=== PATIENT | female | born 1945 | race Caucasian/White ===

== ENCOUNTER 2018-04-21 20:08 | Emergency (ER) | payer MEDICARE, BC ==
[~2018-04-21] VITALS: Ht 162.6 cm; Wt 66.4 kg
[2018-04-21 20:13] VITALS: TEMP 98
[2018-04-21] MEDS ORDERED: LOTENSIN20 MG PO (20:54)
[2018-04-21 21:08] LABS: BASO % 0.3 % (0.0-2.0); EOS # 0.2 (0.0-0.7); EOS % 2.6 % (0-4.0); GRAN % 45.1 % (42.2-75.2); HEMOGLOBIN 14.5 g/dl (12.5-16.0); LYMPH # 2.7 (1.2-3.4); LYMPH % 41.3 % (20.0-51.0); MEAN CELL VOLUME 89 fl (80.0-100.0); MEAN CORPUSCULAR HEMOGLOBIN 30 pg (27.0-31.0); MEAN CORPUSCULAR HGB CONC 34 g/dl (33.0-37.0); MEAN PLATELET VOLUME 9.1 fl (7.4-10.4); MONO # 0.7 (0.1-0.6); MONO % 10.5 % (1.7-9.3); PLATELET COUNT 273 K/mm3 (130-400); RED BLOOD COUNT 4.83 M/mm3 (4.10-5.30); REDCELL DISTRIBUTION WIDTH-CV 12.2 % (11.5-14.5)
[2018-04-21 21:23] LABS: CALCIUM 9.1 mg/dL (8.4-10.2); CREATININE, serum 0.83 mg/dL (0.52-1.25); POTASSIUM 3.5 mmol/L (3.4-5.0)
[2018-04-21 21:53] VITALS: BP 141/72; PULSE 75
== END 2018-04-21 21:53 | disposition home or self-care (01) ==
LOC: COL.ER 20:08
PROVIDERS: Emergency Medicine
DX: R55 Syncope and collapse (principal); R42 Dizziness and giddiness; I10 Essential (primary) hypertension

== ENCOUNTER → 2018-04-29 | Outpatient (CLI) | payer MEDICARE, BC ==
[~2018-04-29] MED LIST: LOTENSIN20 MG PO
== END ==
LOC: COL.RAD 10:30 → COL.VAS 10:30
DX: I65.23 Occlusion and stenosis of bilateral carotid arteries (principal); G45.3 Amaurosis fugax

== ENCOUNTER 2019-04-04 13:47 | Inpatient (IN) | payer MEDICARE, BC ==
[~2019-04-04] VITALS: Ht 162.6 cm; Wt 66.7 kg
[2019-04-04 14:33] LABS: HEMATOCRIT 42.9 % (37.0-47.0); HEMOGLOBIN 14.5 g/dl (12.5-16.0); MEAN CELL VOLUME 89 fl (80.0-100.0); MEAN CORPUSCULAR HEMOGLOBIN 30 pg (27.0-31.0); MEAN CORPUSCULAR HGB CONC 34 g/dl (33.0-37.0); MEAN PLATELET VOLUME 9.2 fl (7.4-10.4); PLATELET COUNT 233 K/mm3 (130-400); RED BLOOD COUNT 4.82 M/mm3 (4.10-5.30); REDCELL DISTRIBUTION WIDTH-CV 12.5 % (11.5-14.5)
[2019-04-04 14:38] LABS: ALBUMIN 4.4 gm/dL (3.5-5.0); BILIRUBIN,TOTAL 0.5 mg/dL (0.0-1.0); CALCIUM 9.7 mg/dL (8.4-10.2); CREATININE, serum 0.76 (0.52-1.25); POTASSIUM 4.1 mmol/L (3.4-5.0); TOTAL PROTEIN 7.3 gm/dL (6.4-8.2)
[2019-04-04 14:58] LABS: BAND 2 % (0-10); EOSINOPHIL 1 % (0-4); LYMPHOCYTE 22 % (20.0-51.0); NEUTROPHILS 72 % (42.0-75.2)
[2019-04-04 14:59] LABS: PLATELET ESTIMATE NORMAL (NORMAL)
[2019-04-04 17:18] VITALS: BP 155/60; PULSE 81; TEMP 97.9
--- NOTE | 2019-04-04 17:33 | NUR ---
Dr Jenkins here to see patient.
[2019-04-04 20:13] LABS: HEMATOCRIT 39.2 % (37.0-47.0)
[2019-04-04 20:58] VITALS: BP 127/57; PULSE 80; TEMP 99.1
[2019-04-05] VITALS: BP 118/50; PULSE 79; TEMP 98.1
--- NOTE | 2019-04-05 01:11 | NUR ---
Patient requested pain medication around 1999. PRN Tylenol administered and patient got up to take a shower. Patient called for more pain medication and PRN Oxycodone 5mg was given. This was noted to be effective. Patient up with assist and appears to be getting around well. Will continue to monitor.
[2019-04-05 03:18] VITALS: BP 130/51; PULSE 76; TEMP 97.8
[2019-04-05 07:13] LABS: BASO % 0.4 % (0.0-2.0); EOS # 0.1 (0.0-0.7); GRAN # 5.7 (1.4-6.5); GRAN % 71.1 % (42.2-75.2); HEMATOCRIT 37.5 % (37.0-47.0); HEMOGLOBIN 12.4 g/dl (12.5-16.0); LYMPH # 1.4 (1.2-3.4); LYMPH % 17.9 % (20.0-51.0); MEAN CELL VOLUME 89 fl (80.0-100.0); MEAN CORPUSCULAR HEMOGLOBIN 30 pg (27.0-31.0); MEAN CORPUSCULAR HGB CONC 33 g/dl (33.0-37.0); MEAN PLATELET VOLUME 8.9 fl (7.4-10.4); MONO # 0.7 (0.1-0.6); MONO % 9.2 % (1.7-9.3); PLATELET COUNT 185 K/mm3 (130-400); RED BLOOD COUNT 4.21 M/mm3 (4.10-5.30); REDCELL DISTRIBUTION WIDTH-CV 12.6 % (11.5-14.5)
[2019-04-05 07:29] LABS: ALBUMIN 3.9 gm/dL (3.5-5.0); BILIRUBIN,TOTAL 0.9 mg/dL (0.0-1.0); CALCIUM 8.6 mg/dL (8.4-10.2); CREATININE, serum 0.68 (0.52-1.25); TOTAL PROTEIN 6.6 gm/dL (6.4-8.2)
[2019-04-05 09:25] VITALS: BP 145/61; PULSE 81; TEMP 98.4
[2019-04-05] MEDS ORDERED: ROXICODONE 55 MG/TAB PO (11:22)
[2019-04-05] MEDS ORDERED: TYLENOL 500MG500 MG PO (11:22)
[2019-04-05] MEDS ORDERED: COLACE 100100 MG/CAP PO (11:23)
[2019-04-05 12:35] VITALS: BP 142/67; PULSE 81; TEMP 97.9
[2019-04-05 16:45] VITALS: BP 118/55; PULSE 82; TEMP 98.4
--- NOTE | 2019-04-05 18:00 | NUR ---
Worked with physical therapist. Stated felt better after activity. Ambulatory with walker and standby assist. Right groin pain improved with prn medications and ice pack. Family at bedside.
[2019-04-05 20:00] VITALS: BP 113/73; PULSE 84; TEMP 98.2
--- NOTE | 2019-04-05 20:00 | NUR ---
Report received. Assumed care for mini shifter. Assessment complete. VS stable. Daughter at bedside. Pain is currently controlled with tylenol/roxicodone 5mg. Requesting to shower. Left AC INT wrapped. Denies nausea. Voiding without difficulty. Plan of care discussed for pain medications, stool softner and increasing activity. Verbalizes understanding. Call light in reach. Bed in low position/wheels locked. Will monitor.
[2019-04-06 04:00] VITALS: BP 91/53; PULSE 50; TEMP 98.3
[2019-04-06 06:08] LABS: BASO % 0.3 % (0.0-2.0); EOS # 0.1 (0.0-0.7); EOS % 1.6 % (0-4.0); GRAN # 6.4 (1.4-6.5); GRAN % 74.5 % (42.2-75.2); LYMPH # 1.3 (1.2-3.4); LYMPH % 14.6 % (20.0-51.0); MEAN CELL VOLUME 91 fl (80.0-100.0); MEAN CORPUSCULAR HEMOGLOBIN 30 pg (27.0-31.0); MEAN CORPUSCULAR HGB CONC 34 g/dl (33.0-37.0); MEAN PLATELET VOLUME 9.5 fl (7.4-10.4); MONO # 0.8 (0.1-0.6); MONO % 8.7 % (1.7-9.3); PLATELET COUNT 157 K/mm3 (130-400); RED BLOOD COUNT 3.62 M/mm3 (4.10-5.30); REDCELL DISTRIBUTION WIDTH-CV 12.9 % (11.5-14.5)
[2019-04-06 06:09] LABS: CALCIUM 8.4 mg/dL (8.4-10.2); CREATININE, serum 0.63 (0.52-1.25)
[2019-04-06 06:48] LABS: HEMATOCRIT 32.8 % (37.0-47.0)
[2019-04-06 09:16] VITALS: BP 128/55; PULSE 73; TEMP 99.8
--- NOTE | 2019-04-06 10:06 | NUR ---
Patient sitting up in bed upon shift assessment. States she has no pain at rest, only when moving-primarily when walking. States her pain feels much more localized to the front lower right of her pelvis today and then has some stiffness in the back left pelvis. States that ice helps with the front right pain. Patient states she is excited to get up and walk with therapy today and attempt doing the stairs. She is hopeful for discharge today or tomorrow. Patient has no other concerns at this time. Call light in reach.
[2019-04-06 12:54] VITALS: BP 129/52; PULSE 85; TEMP 98.3
[2019-04-06 17:35] VITALS: BP 131/39; PULSE 76; TEMP 98.7
[2019-04-06 20:03] VITALS: BP 134/51; PULSE 84; TEMP 98.7
[2019-04-06 23:53] VITALS: BP 106/31; PULSE 80; TEMP 98.4
--- NOTE | 2019-04-07 04:04 | NUR ---
RESTING QUIETLY. NO N/V. PT MEDICATED FOR PELVIC PAIN AT [facility]. PT HAS BEEN RESTING QUIETLY SINCE.
[2019-04-07 04:19] VITALS: BP 107/43; PULSE 73; TEMP 98.3
[2019-04-07 06:49] LABS: BASO % 0.4 % (0.0-2.0); EOS # 0.2 (0.0-0.7); EOS % 2.1 % (0-4.0); GRAN # 4.6 (1.4-6.5); GRAN % 65.4 % (42.2-75.2); HEMOGLOBIN 10.6 g/dl (12.5-16.0); LYMPH # 1.5 (1.2-3.4); LYMPH % 21.8 % (20.0-51.0); MEAN CELL VOLUME 90 fl (80.0-100.0); MEAN CORPUSCULAR HEMOGLOBIN 30 pg (27.0-31.0); MEAN CORPUSCULAR HGB CONC 33 g/dl (33.0-37.0); MEAN PLATELET VOLUME 8.8 fl (7.4-10.4); MONO # 0.7 (0.1-0.6); PLATELET COUNT 155 K/mm3 (130-400); RED BLOOD COUNT 3.56 M/mm3 (4.10-5.30); REDCELL DISTRIBUTION WIDTH-CV 12.7 % (11.5-14.5)
[2019-04-07 06:59] LABS: ALBUMIN 3.5 gm/dL (3.5-5.0); CALCIUM 8.6 mg/dL (8.4-10.2); CREATININE, serum 0.52 (0.52-1.25); PHOSPHOROUS 3.3 mg/dL (2.5-4.5); POTASSIUM 4.1 mmol/L (3.4-5.0)
[2019-04-07 07:53] VITALS: BP 154/59; PULSE 82; TEMP 98.5
--- NOTE | 2019-04-07 09:08 | NUR ---
ASSESSMENT COMPLETED ON PATIENT. PATIENT HAS DX OF PELVIC FRACTURE. PATIENT IS ALERT AND ORIENTED. VSS. PATIENT HAS HISTORY OF HYPERTENSION. PATIENT GIVEN PRN OXYCODONE FOR PELVIC PAIN. PATIENT PLEASANT IN ROOM. CALL LIGHT WITHIN REACH. WILL CONTINUE TO MONITOR
[2019-04-07 11:41] VITALS: BP 134/62; PULSE 101; TEMP 97.9
--- NOTE | 2019-04-07 15:55 | NUR ---
PATIENT ASSESSED AND VSS. PATIENT ALERT AND ORIENTED. PATIENT IV D/C BY NURSING STAFF. PATIENT DISCHARGE INSTRUCTIONS GIVEN TO PATIENT. ALL QUESTIONS ANSWERED AND UNDERSTOOD BY PATIENT. PATIENT GATHERED ALL BELONGINGS AND WAS WHEELED OUT BY NURSING STAFF
== END 2019-04-07 15:45 | disposition home or self-care (01) | DRG 89 ==
LOC: COL.ER 13:47 → SURG 15:59
PROVIDERS: Emergency Medicine; ADMIT Surgery
DX: S06.0X1A Concussion with loss of consciousness of 30 minutes or less, initial encounter (principal); S32.82XA Multiple fractures of pelvis without disruption of pelvic ring, initial encounter for closed fracture; I10 Essential (primary) hypertension; D64.9 Anemia, unspecified; R40.2412 Glasgow coma scale score 13-15, at arrival to emergency department; S80.811A Abrasion, right lower leg, initial encounter; D50.0 Iron deficiency anemia secondary to blood loss (chronic); W55.19XA Other contact with horse, initial encounter; Y93.52 Activity, horseback riding; Y92.89 Other specified places as the place of occurrence of the external cause; Y99.8 Other external cause status; Z90.710 Acquired absence of both cervix and uterus; Z87.891 Personal history of nicotine dependence; Z72.89 Other problems related to lifestyle; Z91.030 Bee allergy status
CPT/HCPCS: OP; A9284; J1885; J3010; J7030

== ENCOUNTER → 2022-11-06 | Outpatient (CLI) | payer MEDICARE, BC ==
[~2022-11-06] MED LIST changes: +COLACE 100100 MG/CAP PO; +ROXICODONE 55 MG/TAB PO; +TYLENOL 500MG500 MG PO
== END ==
LOC: COL.RAD 09:57
DX: K80.20 Calculus of gallbladder without cholecystitis without obstruction (principal); R94.5 Abnormal results of liver function studies